=== PATIENT | male | born 1940 | race Caucasian/White ===

== ENCOUNTER → 2017-05-03 | Outpatient (CLI) | payer OTHER ==
[~2017-05-03] MED LIST: ATOR40TA78 PO; SIMV20TA3 PO; TAMS0.4C2 PO
== END | disposition home or self-care (01) ==
LOC: RAD 13:53
PROVIDERS: ATTEND Urology
DX: N20.0 Calculus of kidney (principal)
CPT/HCPCS: 74000

== ENCOUNTER 2017-05-04 05:55 | Day surgery (SDC) | payer OTHER ==
[~2017-05-04] VITALS: Ht 180.3 cm; Wt 81.8 kg
[2017-05-04] MEDS ORDERED: LIDOCAINE 1%, 2ML ONE (06:41)
[2017-05-04] MEDS ORDERED: LACTATED RINGERS 1,000 ML IV SCH (06:58)
[2017-05-04] MEDS ORDERED: LIDOCAINE 1%, 2ML SQ PRN (07:00)
[2017-05-04] MEDS ORDERED: FENTANYL PF 100 MCG/2ML ONE (07:14)
[2017-05-04] MEDS ORDERED: MIDAZOLAM 1 MG/ML, 2ML ONE (07:14)
[2017-05-04] MEDS ORDERED: LABETALOL 5MG/ML, 20ML IV PRN (07:30)
[2017-05-04] MEDS ORDERED: ALBUTEROL SULFATE 2.5 MG/3 ML NPPB PRN (07:30)
[2017-05-04] MEDS ORDERED: METOPROLOL 1 MG/ML, 5ML IV PRN (07:30)
[2017-05-04] MEDS ORDERED: KETOROLAC 30 MG/1 ML IV PRN (07:30)
[2017-05-04] MEDS ORDERED: EPHEDRINE 50 MG/ML, 1ML IVPush PRN (07:30)
[2017-05-04] MEDS ORDERED: FENTANYL PF 100 MCG/2ML IV PRN (07:30)
[2017-05-04] MEDS ORDERED: OXYcodone 5 MG/5 ML ORAL.SOL UDC PO PRN (07:30)
[2017-05-04] MEDS ORDERED: hydrALAzine 20 MG/ML, 1ML IV PRN (07:30)
[2017-05-04] MEDS ORDERED: ONDANSETRON 2MG/ML, 2ML IVPush PRN (07:30)
[2017-05-04] MEDS ORDERED: METOCLOPRAMIDE 5 MG/ML, 2ML IV PRN (07:30)
[2017-05-04] MEDS ORDERED: HYDROmorphone 1 MG/ML, 1ML IV PRN (07:30)
[2017-05-04] MEDS ORDERED: HYDROcodone/APAP 7.5-325MG/15ML UDC PO PRN (07:30)
[2017-05-04] MEDS ORDERED: ACETAMINOPHEN 325 MG TABLET PO PRN (07:30)
[2017-05-04] MEDS ORDERED: PHENYLEPHRINE 10 MG/ML ONE (07:46)
[2017-05-04] MEDS ORDERED: ONDANSETRON 2MG/ML, 2ML ONE (07:46)
[2017-05-04] MEDS ORDERED: DEXAMETHASONE 4 MG/ML, 1ML ONE (07:46)
[2017-05-04] MEDS ORDERED: PROPOFOL 10 MG/ML, 20ML ONE (07:46)
[2017-05-04] MEDS ORDERED: CEFAZOLIN 1,000 MG ONE (07:46)
[2017-05-04] MEDS ORDERED: GLYCOPYRROLATE 0.2MG/1ML, 5ML ONE (07:46)
[2017-05-04] MEDS ORDERED: SUCCINYLCHOLINE 20 MG/ML, 10ML ONE (07:46)
[2017-05-04] MEDS ORDERED: ROCURONIUM 10 MG/ML ONE (07:46)
== END 2017-05-04 12:00 ==
LOC: OUT 05:55
PROVIDERS: ATTEND Urology
DX: N20.0 Calculus of kidney (principal); I10 Essential (primary) hypertension; E78.5 Hyperlipidemia, unspecified; N41.9 Inflammatory disease of prostate, unspecified; E78.00 Pure hypercholesterolemia, unspecified; Z98.890 Other specified postprocedural states; Z72.89 Other problems related to lifestyle
CPT/HCPCS: 50590; J0330; J0690; J1100; J2250; J2370; J2405; J2704; J3010; J3490; J7120

== ENCOUNTER → 2017-05-17 | Outpatient (CLI) | payer OTHER | END | disposition home or self-care (01) | LOC: RAD 08:43 | PROVIDERS: ATTEND Nurse Practitioner Family | DX: N20.0 Calculus of kidney (principal); I87.8 Other specified disorders of veins | CPT/HCPCS: 74000 ==

== ENCOUNTER → 2017-05-20 | Outpatient (CLI) | payer OTHER | END | disposition home or self-care (01) | LOC: RAD 14:32 | PROVIDERS: ATTEND Urology | DX: N20.0 Calculus of kidney (principal); N21.0 Calculus in bladder; K57.30 Diverticulosis of large intestine without perforation or abscess without bleeding; M47.896 Other spondylosis, lumbar region | CPT/HCPCS: 74176 ==

== ENCOUNTER → 2017-06-20 | Outpatient (CLI) | payer OTHER | END | disposition home or self-care (01) | LOC: RAD 07:27 | PROVIDERS: ATTEND Urology | DX: I87.8 Other specified disorders of veins (principal); I86.1 Scrotal varices | CPT/HCPCS: 74000 ==

== ENCOUNTER → 2017-07-11 | Outpatient (CLI) | payer OTHER ==
[~2017-07-11] MED LIST changes: +ALBU6.7H PO; +ATOR20TA PO
== END | disposition home or self-care (01) ==
LOC: STAR 09:25
PROVIDERS: ATTEND Surgery Vascular Surgery
DX: Z01.818 Encounter for other preprocedural examination (principal); K40.90 Unilateral inguinal hernia, without obstruction or gangrene, not specified as recurrent
CPT/HCPCS: 93005

== ENCOUNTER 2017-07-25 06:12 | Day surgery (SDC) | payer OTHER ==
[~2017-07-25] VITALS: Ht 180.3 cm; Wt 82.5 kg
[2017-07-25] MEDS ORDERED: LACTATED RINGERS 1,000 ML IV SCH (06:46)
[2017-07-25 06:47] VITALS: BP 119/82
[2017-07-25] MEDS ORDERED: FLUT1DIS IH (06:47)
[2017-07-25] MEDS ORDERED: EPINEPHRINE 1 MG/ML, 1ML ONE (06:53)
[2017-07-25] MEDS ORDERED: BUPIVACAINE/PF 0.5% ONE (06:53)
[2017-07-25] MEDS ORDERED: LIDOCAINE 1%, 2ML SQ PRN (07:00)
[2017-07-25] MEDS ORDERED: MIDAZOLAM 1 MG/ML, 2ML ONE (08:15)
[2017-07-25] MEDS ORDERED: FENTANYL PF 100 MCG/2ML ONE (08:15)
[2017-07-25] MEDS ORDERED: PROPOFOL 10 MG/ML, 20ML ONE (08:16)
[2017-07-25] MEDS ORDERED: LIDOCAINE-MPF 2% ,5ML ONE (08:16)
[2017-07-25] MEDS ORDERED: CEFAZOLIN 1,000 MG ONE (08:16)
[2017-07-25] MEDS ORDERED: ROCURONIUM 10 MG/ML,10ML ONE (08:16)
[2017-07-25] MEDS ORDERED: NEOSTIGMINE 1 MG/ML, 10ML ONE (08:16)
[2017-07-25] MEDS ORDERED: DEXAMETHASONE 4 MG/ML, 1ML ONE ×2 (08:21)
[2017-07-25] MEDS ORDERED: BACITRACIN 50,000 UNIT ONE (08:22)
[2017-07-25] MEDS ORDERED: PHENYLEPHRINE 10 MG/ML ONE (08:35)
[2017-07-25] MEDS ORDERED: ONDANSETRON 2MG/ML, 2ML ONE (08:38)
[2017-07-25] MEDS ORDERED: KETOROLAC 30 MG/1 ML ONE (08:39)
[2017-07-25] MEDS ORDERED: HYDROmorphone 1 MG/ML, 1ML IV PRN (09:00)
[2017-07-25] MEDS ORDERED: FENTANYL PF 100 MCG/2ML IV PRN (09:00)
[2017-07-25] MEDS ORDERED: ACETAMINOPHEN 325 MG TABLET PO PRN (09:00)
[2017-07-25] MEDS ORDERED: ALBUTEROL SULFATE 2.5 MG/3 ML NPPB PRN (09:00)
[2017-07-25] MEDS ORDERED: hydrALAzine 20 MG/ML, 1ML IV PRN (09:00)
[2017-07-25] MEDS ORDERED: OXYcodone 5 MG/5 ML ORAL.SOL UDC PO PRN (09:00)
[2017-07-25] MEDS ORDERED: LABETALOL 5MG/ML, 20ML IV PRN (09:00)
[2017-07-25] MEDS ORDERED: PROMETHAZINE 25 MG/ML, 1ML IV PRN (09:00)
[2017-07-25] MEDS ORDERED: ONDANSETRON 2MG/ML, 2ML IVPush PRN (09:00)
[2017-07-25] MEDS ORDERED: MEPERIDINE/PF 25MG/0.5ML IVPush PRN (09:00)
[2017-07-25] MEDS ORDERED: ACETAMINOPHEN 650 MG/20.3 ML UDC ONE (09:07)
[2017-07-25] MEDS ORDERED: OXYcodone 5 MG/5 ML ORAL.SOL UDC ONE (09:08)
== END 2017-07-25 11:45 ==
LOC: OUT 06:12
PROVIDERS: ATTEND Surgery Vascular Surgery
DX: K40.90 Unilateral inguinal hernia, without obstruction or gangrene, not specified as recurrent (principal); N40.0 Benign prostatic hyperplasia without lower urinary tract symptoms
CPT/HCPCS: 49505; C1781; J0171; J0690; J1100; J1885; J2250; J2370; J2405; J2704; J2710; J3010; J3490; J7120

== ENCOUNTER → 2017-09-09 | Outpatient (CLI) | payer OTHER ==
[~2017-09-09] MED LIST changes: +FLUT1DIS IH
== END | disposition home or self-care (01) ==
LOC: RAD 09:18
PROVIDERS: ATTEND Urology
DX: N20.2 Calculus of kidney with calculus of ureter (principal)
CPT/HCPCS: 74018